=== PATIENT | male | born 1985 | race Two or more races ===

== ENCOUNTER 2021-04-14 15:46 | Emergency (ER) | payer SELFPAY ==
[~2021-04-14] VITALS: Ht 177.8 cm; Wt 90.9 kg
[2021-04-14 17:03] VITALS: BP 145/99
[2021-04-14] MEDS ORDERED: DIPH,PERTUSS(ACELL),TET VAC/PF 0.5 ML SYRINGE. VAX IM ONE (18:30)
[2021-04-14] MEDS ORDERED: LIDOCAINE 1%/EPI 1:100,000 20 ML VIAL. INJ ONE (18:30)
--- NOTE | 2021-04-14 19:23 | PHYS DOC ---
Past Medical History Past Medical History: No Pertinent History Past Surgical History: No Surgical History General Adult EDM: Chief Complaint: LACERATION/AVULSION HPI: HPI: Patient is a 35-year-old male that presents today with left forearm laceration. Patient states he was trying to install a new microwave in his house and the microwave dropped and it hit his forearm this causing an laceration on the inner aspect of his forearm. No uncontrolled bleeding at this time. Patient does not know when his last tetanus shot was. Review of Systems: Review of Systems: Constitutional: Denies fever or chills. [] Eyes: Denies change in visual acuity. [] HENT: Denies nasal congestion or sore throat. [] Respiratory: Denies cough or shortness of breath. [] Cardiovascular: Denies chest pain or edema. [] GI: Denies abdominal pain, nausea, vomiting, bloody stools or diarrhea. [] : Denies dysuria. [] Musculoskeletal: Denies back pain or joint pain. [] Integument: Left forearm laceration Neurologic: Denies headache, focal weakness or sensory changes. [] Endocrine: Denies polyuria or polydipsia. [] Lymphatic: Denies swollen glands. [] Psychiatric: Denies depression or anxiety. [] Heart Score: C/O Chest Pain: N/A Risk Factors: Risk Factors: DM, Current or recent (<one month) smoker, HTN, HLP, family history of CAD, obesity. Risk Scores: Score 0 - 3: 2.5% MACE over next 6 weeks - Discharge Home Score 4 - 6: 20.3% MACE over next 6 weeks - Admit for Clinical Observation Score 7 - 10: 72.7% MACE over next 6 weeks - Early Invasive Strategies Current Medications: Current Medications Medications (Trade) Dose Ordered Sig/Idalmis Start Time Stop Time Status Last Admin Dose Admin Diphtheria/ Tetanus/Acell Pertussis (ADACEL TDap SYRINGE) 0.5 ml ONCE ONCE 04/14/21 18:30 04/14/21 18:31 DC 04/14/21 18:23 0.5 ML Lidocaine/ Epinephrine (LIDOCAINE 1%-EPI 1:100,000 Multi-Dose) 20 ml 1X ONCE 04/14/21 18:30 04/14/21 18:31 DC 04/14/21 18:26 20 ML Allergies: Allergies: Allergies Coded Allergies Type Severity Reaction Last Updated Verified No Known Drug Allergies 11/16/21 No Physical Exam: PE: Constitutional: Well developed, well nourished, no acute distress, non-toxic appearance. [] HENT: Normocephalic, atraumatic, bilateral external ears normal, oropharynx moist, no oral exudates, nose normal. [] Eyes: PERRLA, EOMI, conjunctiva normal, no discharge. [] Neck: Normal range of motion, no tenderness, supple, no stridor. [] Cardiovascular:Heart rate regular rhythm, no murmur [] Lungs & Thorax: Bilateral breath sounds clear to auscultation [] Abdomen: Bowel sounds normal, soft, no tenderness, no masses, no pulsatile masses. [] Skin: Warm, dry, no erythema, no rash. [] Back: No tenderness, no CVA tenderness. [] Extremities: Patient has a 3 cm laceration to the left inner forearm, wound is gapping, no uncontrolled bleeding noted, neurovascular intact distal to the injury in the left arm patient denies numbness or tingling in the fingers patient is able to extend and flex fingers with no difficulty Neurologic: Alert and oriented X 3, normal motor function, normal sensory function, no focal deficits noted. [] Psychologic: Affect normal, judgement normal, mood normal. [] Current Patient Data: Vital Signs: Vital Signs Date Time Temp Pulse Resp B/P (MAP) Pulse Ox O2 Delivery O2 Flow Rate FiO2 04/14/21 17:03 98.0 85 18 145/99 (114) 98 Room Air 98.0 EKG: EKG: [] Radiology/Procedures: Radiology/Procedures: Indication: Left forearm laceration Procedure: The patient was placed in the appropriate position and anesthesia around the 5 mL of 1% saline with epinephrine was used to anesthetize the laceration noted in the left upper forearm on the inner aspect. After proper anesthetizing was done the area was with Betadine solution. The laceration was closed using 3-0 silk, 6 interrupted sutures was used. The wound area was then dressed with nonadherent dressing. Total repaired wound length: 3 cm The patient tolerated the procedure well Complications: No complications noted Course & Med Decision Making: Course & Med Decision Making Pertinent Labs and Imaging studies reviewed. (See chart for details) Laceration repair completed patient was given a DTaP, patient needs to come back in 10 days to have the sutures removed follow-up with his primary care for suture removal, patient is to clean the wound twice daily with mild cleansing soap watch for any signs and symptoms of infection such as increased redness, drainage, swelling, or increased pain. Tylenol or ibuprofen as needed for pain [] Dragon Disclaimer: Dragon Disclaimer: This electronic medical record was generated, in whole or in part, using a voice recognition dictation system. Departure Departure Impression: Primary Impression: Laceration of left forearm without complication Qualified Codes: S51.812A - Laceration without foreign body of left forearm, initial encounter Disposition: HOME / SELF CARE / HOMELESS Condition: STABLE Referrals: NO PCP (PCP) Patient Instructions: Laceration Care, Adult Additional Instructions: Follow-up in the emergency department or your primary care's office to have sutures removed in 10 days Keep wound clean and dry Cleanse wound twice daily with mild soap and water Watch for any signs of infection which include increased pain, redness, drainage, or swelling at the site If you have any numbness or tingling or have the inability to use your hand or fingers please return to the emergency department for further evaluation Tylenol and/or ibuprofen as needed for pain LINETTE MELENDEZ APRN Apr 14, 2021 19:23
== END 2021-04-14 19:25 | disposition home or self-care (01) ==
LOC: ER 15:46
DX: S51.812A Laceration without foreign body of left forearm, initial encounter (principal); W22.8XXA Striking against or struck by other objects, initial encounter; Y93.89 Activity, other specified; Y92.89 Other specified places as the place of occurrence of the external cause; Y99.8 Other external cause status
CPT/HCPCS: 12002; 90471; 90715; 99283; J3490